=== PATIENT | male | born 1960 | race Caucasian/White ===

== ENCOUNTER → 2016-08-19 | Outpatient (CLI) | payer BC ==
--- NOTE | 2016-08-19 22:45 | DI ---
XR CXR 2VW PA/LAT,08/19/2016 1:35 PM: Clinical History: Tobacco use disorder Previous Exam: None at this facility. Findings: 2 frontal radiographs and a lateral radiograph of the chest are obtained, and demonstrate clear lungs . The cardiomediastinum and bony thorax are unremarkable. Skeletal structures are unremarkable. Degenerative changes of the spine are noted. There is no eviden ce of pneumothorax. Impression: No acute cardiopulmonary disease.
--- NOTE | 2016-08-19 22:47 | DI ---
XR SHOULDER MIN 2VW,08/19/2016 1:35 PM: Clinical History: Acute right shoulder pain. Previous Exam: None at this facility. Findings: 3 views of the right shoulder are obtained, and demonstrate anatomic alignment without fractures. The right lung and chest wall are unremarkable. Impression: Normal right shoulder.
== END ==
LOC: MOB RAD 13:48 → MOB LAB 13:48
DX: M25.511 Pain in right shoulder (principal); F17.209 Nicotine dependence, unspecified, with unspecified nicotine-induced disorders
CPT/HCPCS: 71020; 73030